=== PATIENT | male | born 2005 | race Caucasian/White ===

== ENCOUNTER 2023-04-08 22:12 | Emergency (ER) | payer BC, MEDICAID, SELFPAY ==
[2023-04-08 22:19] VITALS: BP 150/75; PULSE 70; RESP 16; TEMP 36.6; O2SAT 99; BMI 27.2
--- NOTE | 2023-04-08 22:41 | ED.GENADULT ---
HPI - General Adult General Time Seen by Provider: 22:31 Date Seen: 04/08/23 Chief complaint: Eye Problems Stated complaint: Eye pain, both eyes, possible metal shavings Time Seen by Provider: 04/08/23 22:18 Source: patient, family, RN notes reviewed and old records reviewed Mode of arrival: ambulatory Limitations: no limitations History of Present Illness HPI narrative: 17-year-old male who does not were glasses or contacts, comes in today with bilateral eye pain and foreign body sensation. Patient was cutting metal but also working the room willing, unsure if he has foreign body in the eye or received flash rowley. Has pain and photophobia, no blurry vision but lots of tearing and runny nose. Related Data Home Medications Medication Instructions Recorded Confirmed No Known Home Medications 04/08/23 04/08/23 Allergies Allergy/AdvReac Type Severity Reaction Status Date / Time No Known Drug Allergies Allergy Verified 04/08/23 22:22 PFSH PFSH Social History Smoking Status: Never smoker Do you use any of these nicotine containing products: None How often do you have a drink containing alcohol: never AUDIT-C Alcohol total score: 0 Non-prescribed substance use: denies use Exam Narrative: Exam Narrative: General: well nourished , NAD Head: Atraumatic and normocephalic ENT: External ears and external nose are normal Eyes: Bilateral conjunctival injection, pupils are reactive. Complete relief of pain with tetracaine, under fluorescein stain stippling bilaterally which is fairly mild, no foreign body or other corneal abrasion seen Neck: Full spontaneous range of motion of the neck Lungs: No respiratory distress Musculoskeletal: No tenderness or deformity Neurologic: No gross focal neurologic deficits Skin: No rashes Psych: Mood and affect are appropriate Const: Vital Signs, click to edit/add: Vital Signs - 24 hr 04/08/23 22:19 Temperature 97.8 F Pulse Rate [Left P ulse Oximeter] 70 Respiratory Rate 16 Blood Pressure [Ri ght Upper Arm] 150/75 H Pulse Oximetry 99 Oxygen Delivery Me thod Room Air Course Course Hospital Course: Patient seen examined, prior records reviewed. Patient complains of bilateral eye pain after both working with metal and being around welding today. On exam, bilateral conjunctival injection with no foreign body seen in either eye. Under fluorescence stain, stippling bilaterally consistent with UV keratitis. Patient was started on antibiotic ointment and close follow-up with Ophthalmology. Eyelids everted, no foreign body seen. Vital Signs Vital signs: Initial Vital Signs Temperature 97.8 F 04/08/23 22:19 Temperature Source Temporal Artery Scan 04/08/23 22:19 Pulse Rate 70 04/08/23 22:19 Respiratory Rate 16 04/08/23 22:19 Blood Pressure 150/75 H 04/08/23 22:19 Blood Pressure Mean 100 04/08/23 22:19 Blood Pressure Position Sitting 04/08/23 22:19 Pulse Oximetry 99 04/08/23 22:19 Oxygen Delivery Method Room Air 04/08/23 22:19 Vital Signs Temperature 97.8 F 04/08/23 22:19 Pulse Rate 70 04/08/23 22:19 Respiratory Rate 16 04/08/23 22:19 Blood Pressure 150/75 H 04/08/23 22:19 Pulse Oximetry 99 04/08/23 22:19 Oxygen Delivery Method Room Air 04/08/23 22:19 Temperature 97.8 F 04/08/23 22:19 Pulse Rate 70 04/08/23 22:19 Respiratory Rate 16 04/08/23 22:19 Blood Pressure 150/75 H 04/08/23 22:19 Pulse Oximetry 99 04/08/23 22:19 Oxygen Delivery Method Room Air 04/08/23 22:19 Discharge Plan Discharge Clinical Impression: UV keratitis Patient Disposition: Home w/ Parent or Adult Condition: Stable Instructions: Corneal Flash Rowley (ED) Additional Instructions: Tylenol or ibuprofen as needed for pain, oxycodone as needed for more severe pain Follow-up in the eye clinic in 2 days for recheck Discharge Diet: Regular Prescriptions: No Action No Known Home Medications Stand Alone Forms: MyHealth Info Instructions
[2023-04-08] MEDS: TETRACAINE 0.5% OPHTH 2 DROP EYE-BOTH (22:43)
[2023-04-08] MEDS: FLUORESCEIN SODIUM TOPICAL STRIP 2 STRIP EYE-BOTH (22:43)
== END 2023-04-08 23:00 | disposition home or self-care (01) ==
LOC: ED 22:53
PROVIDERS: Emergency Provider Family Medicine
DX: H16.133 Photokeratitis, bilateral (principal)
CPT/HCPCS: 99283; 99284; A9270